=== PATIENT | female | born 1950 | race African-American/Black ===

== ENCOUNTER 2018-11-05 08:48 | Inpatient (IN) | payer MEDICARE ==
--- NOTE | 2018-10-23 14:51 | HP ---
HISTORY AND PHYSICAL: DATE OF ADMISSION/SURGERY: 11/05/18 DATE OF OFFICE VISIT: 10/23/18 SURGEON: Dorinda Harper MD* (dictated by JAVIER Silva). PROCEDURE: Left total knee arthroplasty. CHIEF COMPLAINT: Left knee pain. HISTORY OF PRESENT ILLNESS: Ms. Fox is a 68-year-old female with continued complaints of left knee pain. She has failed conservative treatment and elected to proceed with a left total knee arthroplasty. PAST MEDICAL HISTORY: Hypertension, asthma, GERD, hypothyroidism, anxiety, depression, history of superficial phlebitis, sleep apnea, and fibromyalgia. PAST SURGICAL HISTORY: Hernia repair, x2, cholecystectomy, cataract removal, laminectomy, hammertoe repair, and a right total knee arthroplasty. CURRENT MEDICATIONS: 1. Xanax 0.5 mg 3 times a day as needed. 2. Tylenol as needed. 3. Nasonex as needed. 4. Valacyclovir 500 mg a day. 5. Ambien 10 mg q.h.s. 6. Hydrochlorothiazide 25 mg a day. 7. Meloxicam 7.5 mg twice a day. 8. Zantac. 9. Vitamin D. 10. Multivitamin. 11. Flexeril. 12. Cytomel 5 mcg daily. 13. Albuterol sulfate. 14. Aspirin 81 mg a day. ALLERGIES: PENICILLIN, LATEX, and TAPE. FAMILY HISTORY: Diabetes, hypertension, stroke, cancer, and RA. SOCIAL HISTORY: She is a 68-year-old female. She lives alone. She does not smoke or use drugs. Uses occasional alcohol. REVIEW OF SYSTEMS: A complete 14-point review of systems was reviewed with the patient. She reports hypothyroidism and some occasional palpitations and asthma. She denies history of DVT, PE, hepatitis, HIV, or anesthesia problems. PHYSICAL EXAMINATION GENERAL: She is well developed, well nourished, in no acute distress. VITAL SIGNS: She stands 5 feet 2 inches tall, weighs 251 pounds. Her blood pressure is 128/76, her heart rate is 60. HEENT: Normocephalic, atraumatic. NECK: Supple. No palpable lymph nodes. PULMONARY: The lungs are clear to auscultation bilaterally. CARDIO: Regular rate and rhythm. Strong S1, S2. ABDOMEN: Soft, nontender, nondistended. NEUROLOGICAL: She is alert and oriented x3. MUSCULOSKELETAL: Left lower extremity: Skin is intact. There are no open wounds or abrasions. There is some tenderness over the medial and lateral joint line and a moderate left knee effusion. Range of motion is 5 to 110 degrees of flexion. She has 2+ dorsalis pedis pulse. Intact sensation. Her lower extremity muscle group strengths are intact at 5/5. ASSESSMENT AND PLAN: Ms. Fox is a 68-year-old female with end-stage osteoarthritis of the left knee. She has failed conservative treatment and elected to proceed with a left total knee arthroplasty. Her surgery is scheduled for 11/05/[address] Harper discussed the risks and benefits of the surgery at today's visit and all of her questions were answered. She will follow up with Dr. Harper 2 weeks after the surgery. JAVIER SILVA [id number]/[facility] #: [id number] SHANNON
[~2018-11-05 08:48] MED LIST: Buffered Lidocaine 1% SYRIN* 1 ML/SYRINGE INTRADERM ONE; Lactated Ringers 1000 ML Bag* 1,000 ML IV SCH; Tranexamic Acid 1,000 MG in NS 0.9% 50 ML* (outpatient use) IV SCH
--- OUTSIDE RECORDS SUMMARY | 2018-11-05 08:52 | XMS REPORT | Continuity of Care Document ---
:1950 External Reference #:[id number] Author Name Mayr Brock Care Team Providers Name Role Phone Pedro Recio MD Primary Care Physician Unavailable Payers Date Identification Numbers Payment Provider Subscriber Policy Number: [id number] Medicare Sasha Fox PayID: [id number] [address] [place] [address] Policy Number: [id number] [facility] Sasha Fox PayID: [id number] [address] [place] [address] Effective: 2014 Policy Number: [id number] Gomez/[employer] Medicaid Sasha Fox Expires: 2018 PayID: [id number] [address] [address] [place] [address] Advance Directives Description No Information Available Problems Date Description Provider Status Onset: 01/05/2015 Obstructive sleep apnea of adult Anita Tam DNP RN, Active [employer] Onset: 03/15/2015 Spinal stenosis of lumbar region Chace Siegel M.D. Active Onset: 08/23/2018 Localized, primary osteoarthritis Dorinda Harper M.D. Active Family History Date Family Member(s) Observation Comments General MGM HTN General Diabetes General Heart Disease General Stroke General Cancer General Rheumatoid Arthritis Father non contributory Mother due to 5 years ago () Mother Hypertension Mother Throat Cancer Mother COPD Siblings 11 Siblings 2 brothers ; 1 overdosed;1 in accident Siblings sister of breast cancer ; others alive and well Social History Type Date Description Comments Sex Unknown Marital Status Single Marital Status Lives With Alone Occupation Disabled Previous employment as a [employer]ER[employer] Cigarette Use Quit 40 Years Ago ETOH Use Occasionally consumes alcohol Tobacco Use Start: Unknown Patient is a former End: Unknown smoker Recreational Drug Use Denies Drug Use Tobacco Use Start: Unknown Light tobacco smoker (10 or fewer cigarettes/day) Smoking Status Reviewed: 10/23/18 Light tobacco smoker (10 or fewer cigarettes/day) Exercise Type/Frequency Exercises sporadically Allergies, Adverse Reactions, Alerts Date Description Reaction Status Severity Comments 01/05/2015 Penicillin Active 01/05/2015 Latex Active 08/23/2018 Tape Active Medications Medication Date Status Form Strength Qnty SIG Indications Ordering Provider Xanax 01/04 Active Tablets 0.5mg by mouth three times a day as needed Tylenol Extra 01/04 Active Tablets 500mg as needed Unknown Nasonex 01/04 Active Suspension 50mcg/Act 2 sprays to each nostril twice daily Valacyclovir HCL 01/04 Active Tablets 500mg 1 by mouth every day Ambien 01/04 Active Tablets 10mg 1 by mouth every night at bedtime as needed sleep insomnia Hydrochlorothiazid Active Tablets 25mg 1 by Unknown e /0000 mouth every day Meloxicam Active Tablets 7.5mg take one Unknown /0000 tab twice daily as needed for pain, avoid other nsaids Zantac 150 Maximum Active Tablets 150mg 1 by Unknown Strength /0000 mouth twice a day Vitamin D Active Unknown /0000 Multivital Active Unknown /0000 Cyclobenzaprine Active Unknown HCL /0000 Cytomel Active Tablets 5mcg 1 by Unknown /0000 mouth every day Albuterol Sulfate Active Unknown /0000 Pelgen 03/15 Hx as directed - 08/22 Restoril 01/04 Hx Capsules 15mg as needed for sleep - 01/04 Dulera 01/04 Hx Aerosol 200-5mcg/ 2 puff Act twice a - day 08/22 Centrum Silver 01/04 Hx Tablets 1 by mouth - every day 08/[address] 01/[address] 500mg by mouth twice a - day with 10/22 Proventil HFA 01/04 Hx Aerosol 108(90Bas 2 puffs e) by mouth - mcg/Act every 4 08/22 hours needed Dariela Allergy 01/04 Hx Tablets 180mg 1 by mouth - every day 08/22 Zolpidem Tartrate 01/04 Hx Tablets 10mg 1 tab by mouth - every 01/04 night at bedtime as needed Naproxen 01/04 Hx Tablets 500mg 1 tablet with food - by mouth 03/15 twice a day Advair Diskus Hx Unknown /0000 - 10/22 Immunizations Description No Information Available Vital Signs Date Vital Result Comment 10/23/2018 9:47am Height 62 inches 5'2" Weight 251.00 lb Heart Rate 60 /min BP Systolic 128 mmHg BP Diastolic 76 mmHg Pain Level 5 BMI (Body Mass Index) 45.9 kg/m2 08/23/2018 2:56pm Height 62 inches 5'2" Weight 250.00 lb Heart Rate 68 /min BP Systolic 140 mmHg BP Diastolic 90 mmHg BMI (Body Mass Index) 45.7 kg/m2 03/16/2015 9:45am Height 62.75 inches 5'2.75" Heart Rate 68 /min BP Systolic 148 mmHg BP Diastolic 76 mmHg Respiratory Rate 12 /min O2 % BldC Oximetry 98 % 03/15/2015 1:32pm Height 62.75 inches 5'2.75" Weight 226.00 lb Heart Rate 80 /min BP Systolic Sitting 142 mmHg BP Diastolic Sitting 76 mmHg Pain Level 5 lower back, L leg BMI (Body Mass Index) 40.3 kg/m2 01/05/2015 1:26pm Height 62 inches 5'2" Weight 232.00 lb Heart Rate 66 /min BP Systolic Sitting 136 mmHg BP Diastolic Sitting 78 mmHg Respiratory Rate 20 /min Body Temperature 97.4 F O2 % BldC Oximetry 98 % BMI (Body Mass Index) 42.4 kg/m2 Neck Circumference in inches 14.5 Results Description No Information Available Procedures Date Code Description Status 02/21/2015 53163 Polysomnography Sleep Staging 4+ Parameters Completed 11/25/2012 15975 Polysomnography Sleep Staging 4+ Parameters Completed 01/08/2009 47144 ECHO Stress Test Incl Perf Contiuous ekg Monitoring W/Phys Completed Superv 01/08/2009 88072 ECHO Stress Test Incl Perf Contiuous ekg Monitoring W/Phys Completed Superv Encounters Type Date Location Provider Dx Diagnosis Office Visit 08/23/2018 Orthopedic Dorinda Harper, M25.562 Pain in left knee 2:30p [facility] M25.462 Effusion, left knee M17.12 Unilateral primary osteoarthritis, left knee Office Visit 03/16/2015 Pulmonology And Anita 327.23 Obstructive Sleep 9:30a [facility] Tam RN, Apnea Adult [facility]- Pediatric Office Visit 03/15/2015 Neurosurgery Chace Siegel, 724.03 Spinal Stenosis , 1:30p [facility] Lumbar Region W/ Neurogenic Claudication Office Visit 01/05/2015 Pul[facility] 327.23 Obstructive Sleep 1:00p [facility] Tam RN, Apnea [facility]- Pediatric Office Visit 10/04/2012 [facility] 327.23 Obstructive Sleep 1:14p [facility]zon Apnea Adult & Pediatric Office Visit 01/08/2009 [facility] Qutayb S. 786.50 Pain Chest Unspec 1:30p [facility] Garrett 401.1 Hypertension Benign Plan of Treatment Future Appointment(s):11/05/2018 12:30 pm - ROMAN Bernard at [facility]11/05/2018 12:30 pm - JAVIER Dorado at [facility]11/05/2018 12:30 pm - Dorinda Harper M.D. at [facility]10/23/2018 - Dorinda Harper M.D.M25.562 Pain in left kneeFollow up:Follow up: 2 weeks after [id number] Effusion, left kneeM17.12 Unilateral primary osteoarthritis, left knee
[2018-11-05] MEDS ORDERED: ceFAZolin 2 GM in NS PREMIX(*) 0 GM/0 ML BAG IVPB ONE (09:08)
[2018-11-05] MEDS ORDERED: fentaNYL* 50 MCG/ML 2 ML VIAL (100 MCG VIAL) ONE ×3 (10:08→12:25)
[2018-11-05] MEDS ORDERED: Midazolam* 1 MG/ML 5 ML VIAL (5 MG) ONE (10:09)
[2018-11-05] MEDS ORDERED: Clindamycin 900 MG IVPREMIX(* 900 MG/50 ML SDV IV ONE (10:31)
[2018-11-05] MEDS ORDERED: ROPIVACAINE 5 MG/ML 30 ML BTL (0.5%) ONE (11:07)
[2018-11-05] MEDS ORDERED: Propofol* 10 MG/ML 20 ML BTL ONE ×3 (11:45→12:33)
[2018-11-05] MEDS ORDERED: Bupivacaine 0.5% W/EPI SDV* 30 ML VIAL ONE (11:47)
[2018-11-05] MEDS ORDERED: Dexamethasone IV* 4 MG/ML 1 ML (4 MG) ONE (12:33)
[2018-11-05] MEDS ORDERED: Ondansetron INJ* 2 MG/ML VIAL ONE (12:33)
[2018-11-05] MEDS ORDERED: Naloxone* 0.4 MG/ML 1 ML VIAL IV PRN (14:12)
[2018-11-05] MEDS ORDERED: Bisacodyl SUPP* 10 MG SUPP PR PRN (14:27)
[2018-11-05] MEDS ORDERED: Ondansetron TAB* 4 MG PO PRN (14:27)
[2018-11-05] MEDS ORDERED: Morphine 4 MG/ML VIAL (1 ml) 4 MG/ML VIAL IV PRN (14:27)
[2018-11-05] MEDS ORDERED: oxyCODONE/Acetamin 5/325 MG* TAB PO PRN (14:27)
[2018-11-05] MEDS ORDERED: traMADol TAB* 50 MG PO PRN (14:27)
[2018-11-05] MEDS ORDERED: diPHENhydraMINE IV* 50 MG/ML 1 ml VIAL (BENADRYL) IV PRN (14:27)
[2018-11-05] MEDS ORDERED: Ondansetron INJ* 2 MG/ML VIAL IV PRN (14:27)
[2018-11-05] MEDS ORDERED: Magnesium Hydroxide LIQ* 30 ML UDC PO PRN (14:27)
[2018-11-05] MEDS ORDERED: Polyethylene Glycol 3350* 17 GM PACKET PO PRN (14:27)
[2018-11-05] MEDS ORDERED: Albuterol HFA INHALER* 8 gm MDI INH PRN (14:32)
[2018-11-05] MEDS ORDERED: Zolpidem TAB* 10 MG PO PRN (14:32)
[2018-11-05] MEDS ORDERED: ALPRAZolam TAB* 0.5 MG PO PRN (14:32)
[2018-11-05] MEDS ORDERED: hydrALAZINE IV* 20 MG/ML VIAL ONE (14:39)
[2018-11-05] MEDS ORDERED: HYDROmorphone INJ1* 1 MG/ML SYRINGE ONE ×2 (14:42→15:05)
[2018-11-05] MEDS ORDERED: Lactated Ringers 1000 ML Bag* 1,000 ML IV SCH (15:00)
--- NOTE | 2018-11-05 15:32 | PN ---
Progress Note - Progress Note Date of Service: 11/05/18 Note: resting comfortably with moderate left knee pain. able to dorsi flex/plantar flex, 2+ DP pulse, intact sensation; dressing c/d/i
[2018-11-05] MEDS ORDERED: diPHENhydraMINE PO* 50 MG PO PRN (15:51)
[2018-11-05] MEDS ORDERED: oxyCODONE/Acetamin 5/325 MG* TAB ONE (16:13)
--- NOTE | 2018-11-05 16:47 | CONS ---
CONSULTATION NOTE: DATE OF CONSULT: 11/05/18 REQUESTING PROVIDER: Dr. Dorinda Harper. ATTENDING PROVIDER: Dr. Lr * (DICTATED BY JAVIER ERIC) REASON FOR CONSULT: Co-management of chronic medical conditions. HISTORY OF PRESENT ILLNESS: Sasha Fox is a 68-year-old black female with past medical history significant for hypertension, asthma, hypothyroidism and obstructive sleep apnea, who is status post left total knee arthroplasty day [address] Harper. The patient failed conservative outpatient medical therapy for treatment of her osteoarthritis of her left knee and elected for surgery today. At the time of evaluation, the patient is located in the PACU. She overall feels comfortable other than left knee pain. She denies chest pain, dyspnea, visual changes, headaches, palpitations, abdominal pain, nausea, vomiting. She and her family at bedside have no questions. PAST MEDICAL HISTORY: 1. Hypertension. 2. Asthma. 3. GERD. 4. Hypothyroidism. 5. Anxiety. 6. Depression. 7. Obstructive sleep apnea. 8. Fibromyalgia. 9. HSV. 10. History of superficial phlebitis. The patient denies history of IN or stroke. PAST SURGICAL HISTORY: Hernia repair, , cholecystectomy, cataract removal, laminectomy, hammertoe repair, and right TKA. HOME MEDICATIONS: 1. Flexeril 5 mg p.o. b.i.d. p.r.n. 2. Zantac 150 p.o. q.a.m. 3. Synthroid 5 mcg p.o. q.a.m. 4. Tylenol 500 mg p.o. daily p.r.n. pain. 5. Xanax 0.5 mg p.o. b.i.d. p.r.n. anxiety. 6. Vitamin D3 5000 units p.o. q.a.m. 7. Aspirin 81 mg p.o. q.p.m. 8. Albuterol inhaler 2 puffs inhaled q.4 hours p.r.n. wheezing. 9. Dariela 180 mg p.o. q.a.m. 10. Meloxicam 7.5 mg p.o. b.i.d. p.r.n. 11. Hydrochlorothiazide 25 mg p.o. q.a.m. 12. Multivitamin 1 tab p.o. q.a.m. 13. Nasonex 1 spray intranasally daily. 14. Valtrex 500 mg p.o. q.a.m. 15. Ambien 10 mg p.o. at bedtime p.r.n. insomnia. ALLERGIES: PENICILLIN, TRAMADOL, LATEX. FAMILY HISTORY: The patient endorses family history of diabetes, hypertension, and stroke. REVIEW OF SYSTEMS: An 11-point review of systems was completed and all pertinent positives and negatives are in the HPI. All other systems are negative. PHYSICAL EXAM: General: Obese, black female, resting in PACU stretcher with daughter and granddaughter at bedside, appearing in no acute distress. Head: Normocephalic, atraumatic. Eyes: EOMI. PERRL. Sclerae anicteric. ENT: Mucous membranes are moist. Neck is supple. Cardio: Regular rate and rhythm without murmurs, rubs, or gallops. Respiratory: Lungs are clear to auscultation. Chest expansion is symmetrical. Abdomen is soft, nontender, and nondistended. Extremities: No clubbing or edema. The left knee is in Alfred wrap. Neuro: The patient is lethargic at times, though very easily rousable by voice. The patient is oriented x3. DIAGNOSTIC STUDIES/LAB DATA: None from this hospitalization. ASSESSMENT AND PLAN: Sasha Fox is a 68-year-old black female with past medical history significant for hypertension, asthma, hypothyroidism and obstructive sleep apnea, who presents for elective left total knee arthroplasty today with Dr. Harper. Hospital Medicine was consulted for co-management of chronic conditions. 1. Hypertension. Continue home hydrochlorothiazide. Continue to monitor blood pressure. The patient has been hypertensive in the PACU to 161/87. May consider ordering p.r.n. hydralazine. 2. Obstructive sleep apnea. The patient does not use CPAP at home. She uses an oral device, which she did bring to the hospital. Continuous pulse ox will be ordered at night. 3. status post left total knee arthroplasty. Management per orthopedic surgery. Recommend holding ambien in the setting of patient receiving opiates for pain control. Ordered benadryl prn insomnia as replacement. 4. DVT prophylaxis: Per Orthopedic Surgery. 5. Disposition: Per Orthopedic Surgery. Thank you for allowing us to participate in the care of this patient. We will follow during this admission. JAVIER ERIC ADDENDUM CONSULTATION DATE OF CONSULT: 11/05/18 PRIMARY CARE PROVIDER: Dr. Recio. ADDENDUM: The case was reviewed and discussed with Regina Ryan, physician assistant toddler teacher. Mrs. Fox is a 68-year-old lady with a past medical history of neurogenic claudication, hypothyroidism, spinal stenosis, DJD, hypertension, depression, asthma who presented for an elective left total knee arthroplasty with Dr. Harper. As per my discussion with Janneth Hennessy, physician assistant toddler teacher, her surgery went well and the hospitalist service is being consulted to assist with management of her comorbidities. Her blood pressure is controlled and we will continue her antihypertensives including hydrochlorothiazide. For her sleep apnea, the patient is not on CPAP. She just wears an oral device and we will monitor her oxygen level overnight. RENETTA Lr MD [id number]/[facility] #: [id number] Perez [id number]/[facility] #: [id number] SHANNON
[2018-11-05] MEDS: Cyclobenzaprine TAB* 10 MG PO PRN (17:27)
[2018-11-05] MEDS: Acetaminophen TAB* 325 MG PO SCH (18:44)
[2018-11-05] MEDS ORDERED: Hydrochlorothiazide TAB* 25 MG PO ONE (19:08)
--- NOTE | 2018-11-05 19:36 | OP ---
Operative Report - Blank - Operative Report Date of Operation: 11/05/18 Note: JAZMINE URENA 1950 Date of Surgery: 11/05/18 Dorinda Harper MD Fusing Line Inspector: Janneth Hennessy did help throughout the procedure with preparation of the knee, wound retraction, manipulation of the knee, and wound closure. Anesthesiologist: Dr. Vicente Anesthesia Type: General Preoperative Diagnosis: Left severe degenerative osteoarthritis of the knee Postoperative Diagnosis: As above Procedure Performed: Left Total Knee Arthroplasty Tourniquet time: 63 minutes Complications: None Specimen: Bone and cartilage from the left knee joint sent to pathology. Hardware Used: Cemented Montalvo and Nephew total knee hardware was used - For the femur a size 6 narrow oxinium legion posterior stabilized femoral component, for the tibia a size 5 left gerardo II tibial baseplate, for the insert a size 11 posterior stabilized articular polyethylene insert, and for the patella a size 32 3-peg all poly patella. Brief History/Indication: JAZMINE URENA was known in clinic and had a history of severe side knee pain and swelling. She failed conservative treatment with anti-inflammatories, pain pills, intra-articular injections and physical therapy. She elected to undergo left total knee arthroplasty due to continued pain and decreased quality of life. Radiographs showed severe end stage osteoarthritis of the knee with bone on bone contact. Informed consent was obtained from the patient. She understood the risks of surgery included but were not limited to: bleeding, infection, damage to nearby structures, intraoperative fracture, nerve palsy, failure of the hardware, early loosening, knee stiffness or loss of motion, anesthesia complications, stroke, heart attack , blood clot and . She wished to proceed. Intra-Operative Findings: Intraoperatively the patient was noted to have severe loss of cartilage in all 3 compartments of the knee. Description of the Procedure: JAZMINE URENA was identified in the preanesthesia unit. Her left knee was marked as the correct operative side. Informed consent was signed and placed in the chart. The patient was taken to the operating room and placed under anesthesia without complication. A holloway catheter was placed. A tourniquet was placed on the left thigh. The left lower extremity was prepped and draped in the usual sterile fashion. Preoperative time-out was made to correctly identify the patient, side and site. Appropriate intraoperative antibiotics were given within one hour of incision. Tourniquet was inflated. A midline incision was made and carried sharply down to the extensor mechanism. A new 10 blade was used to make a standard medial parapatellar arthrotomy. The patella was subluxed laterally. Electrocautery was used to dissect soft tissue off the superomedial tibia to the midsagittal plane. The knee was flexed up. The anterior horn of the lateral meniscus and the ACL were sharply incised. A drill was used to enter the distal femur. The intramedullary distal femoral cutting guide was pinned on the distal femur. The oscillating saw was used to make the distal femoral cut. The external rotation guide was pinned on the distal femur and the distal femur was sized to a size 6. The size 6 multi-cutting jig was pinned on the distal femur. The oscillating saw was used to make the appropriate 4 chamfer cuts. Next the PCL was completely released. The extramedullary tibial cutting guide was pinned on the proximal tibia and the oscillating saw was used to make the proximal tibial cut perpendicular to the mechanical axis of the tibia. The bone was carefully removed. The knee was brought out into full extension. The spacer block was placed and had excellent fit with the knee in full extension. The medial and lateral ligaments were well balanced. The flexion and extension gaps were well balanced. The knee was flexed up. Lamina manager cash was placed both medially and laterally. Any remaining meniscus was removed with electrocautery. Curved osteotome was used to remove any posterior osteophytes. The tibial tray and drop humberto were placed and confirmed a satisfactory tibial cut. The size 6 left narrow femoral trial was impacted onto the distal femur. This trial had excellent fit and stability. The box for the posterior stabilized implant was prepared using a box cut osteotome and a reamer. Next a tibial tray trial and 9 mm insert trial was placed. The knee was taken through a range of motion and had full extension to 130 degrees of flexion. Patellofemoral tracking was satisfactory. The patella was inverted and sized to a size 32. Three peg holes were drilled through the size 32 drill guide. The trial patella was placed and the knee was taken through a range of motion. There was satisfactory patellofemoral tracking. All trials were removed. The tibia was subluxed anteriorly and sized to a size 5. The proximal tibial was prepared with a size 5 keel punch. All bony cut surfaces were irrigated with sterile saline and dried. Final implants were cemented into place starting with the tibia, followed by the femur, and last the patella. A 9 mm insert trial was placed and the knee was brought into full extension. Tourniquet was turned down and the knee was copiously irrigated with sterile saline. Electrocautery was used to obtain meticulous hemostasis. Once the cement had fully cured, the insert trial was removed. Any excess cement was removed from around the hardware and capsule. Final insert chosen was a 11 mm posterior stabilized Gerardo II articular insert size 5-6. Stability of the insert was checked and noted to be stable. The extensor mechanism was closed using number 1 vicryls. The rest of the incision was closed in a layered fashion using 0 and 2-0 vicryls. The skin was closed using 3-0 nylon suture. Sterile xeroform, 4x4s and webril were used to cover the incision. Alfred wrap and cold pack were used to cover the dressings. The patients anesthesia was reversed without difficulty. She was taken to the PACU in stable condition. Intended weight-bearing will be as tolerated.
[2018-11-05] MEDS: Docusate CAP* 100 MG PO SCH (19:39)
[2018-11-05] MEDS: oxyCODONE TAB* 5 MG TAB PO PRN ×2 (19:39→23:28)
[2018-11-05] MEDS: Clindamycin 600 MG IVPREMIX(* 600 MG/50 ML SDV IV SCH (19:40)
[2018-11-05] MEDS: Magnesium Hydroxide LIQ* 30 ML UDC PO SCH (19:45)
--- NOTE | 2018-11-05 20:03 | CONS ---
CC: Dr. Recio CONSULTATION REPORT: DATE OF CONSULT: PRIMARY CARE PROVIDER: Dr. Recio. ADDENDUM: The case was reviewed and discussed with Regina Ryan, physician assistant professor of psychology. Mrs. Fox is a 68-year-old lady with a past medical history of neurogenic claudication, hypothyroidism, spinal stenosis, DJD, hypertension, depression, asthma who presented for an elective left total knee arthroplasty with Dr. Harper. As per my discussion with Janneth Hennessy, physician assistant professor of psychology, her surgery went well and the hospitalist service is being consulted to assist with management of her comorbidities. Her blood pressure is controlled and we will continue her antihypertensives including hydrochlorothiazide. For her sleep apnea, the patient is not on CPAP. She just wears an oral device and we will monitor her oxygen level overnight. [id number]/[facility] #: [id number] MTDD
[2018-11-06] MEDS: oxyCODONE TAB* 5 MG TAB PO PRN ×5 (03:30→21:12)
[2018-11-06] MEDS: Acetaminophen TAB* 325 MG PO SCH ×3 (03:30→18:27)
[2018-11-06] MEDS: Clindamycin 600 MG IVPREMIX(* 600 MG/50 ML SDV IV SCH ×2 (03:31→11:50)
[2018-11-06 05:30] LABS: Hematocrit 33 % (33-41); Hemoglobin 10.9 g/dL (12.0-16.0); Mean Platelet Volume 7.8 fL (7.4-10.4); Platelet Count 231 10^3/uL (150-450)
[2018-11-06 05:50] LABS: BUN/Creatinine Ratio 12.5 (8-20); Calcium 8.9 mg/dL (8.6-10.3); EGFR African American 86.6 (>60); EGFR Non-African American 71.5 (>60); Potassium 3.7 mmol/L (3.5-5.0)
[2018-11-06] MEDS: Cyclobenzaprine TAB* 10 MG PO PRN ×2 (05:59→21:12)
[2018-11-06] MEDS ORDERED: Levothyroxine TAB* 25 MCG TAB PO SCH (06:00)
[2018-11-06] MEDS: Liothyronine TAB* 5 MCG PO SCH (08:32)
[2018-11-06] MEDS: Magnesium Hydroxide LIQ* 30 ML UDC PO SCH ×2 (08:32→21:12)
[2018-11-06] MEDS: Docusate CAP* 100 MG PO SCH ×2 (08:32→21:12)
[2018-11-06] MEDS: Hydrochlorothiazide TAB* 25 MG PO SCH (08:32)
[2018-11-06] MEDS: ValACYclovir (*) 500 MG TAB PO SCH (08:33)
[2018-11-06] MEDS ORDERED: Apixaban* 2.5 MG TAB PO SCH (09:00)
--- NOTE | 2018-11-06 09:45 | PN ---
Progress Note - Progress Note Date of Service: 11/06/18 SOAP: Subjective: [] Pt seen at bedside today. She is feeling well, pain is rated between 4-6/10. Denies CP, SOB, dizziness, nausea. She discussed costs for DVT prophylaxis with her insurance company and has found eliquis/xarelto to be very expensive. She has taken coumadin in the past and never reached a therapeutic INR. 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 Objective: []General: Appears well, NAD LLE: Left knee dressing CDI, thigh is soft, DF/PF intact, DP2+, sensation intact to light touch distally, DP2+ Calves supple and nontender without erythema, edema or palpable cords Assessment: []POD [address] Harper 11/05/18 Plan: []WBAT PT/OT Already received 1 dose of eliquis this morning though due to expense and patient preference, will transition to lovenox tonight at 20:30 which would have been next scheduled dose for eliquis. Anticipate DC home tomorrow Vital Signs Temp 99.3 F 11/06/18 04:54 Pulse 89 11/06/18 04:54 Resp 18 11/06/18 07:49 BP 131/62 11/06/18 04:54 Pulse Ox 98 11/06/18 04:54 Intake & Output 11/05/18 11/06/18 11/06/18 18:59 06:59 18:59 Intake Total 3200 2011 Output Total 300 2350 300 Balance 2900 -339 -300 Weight 249 lb Intake: IV Fluids 3200 956 LR 3200 956 IVPB 55 ABX - CLINDAMYCIN 55 Oral 1000 Output: Urine 300 Torres 300 2350 Laboratory Last Values Hgb 10.9 g/dL (12.0-16.0) L 11/06/18 05:01 Hct 33 % (33-41) 11/06/18 05:01 Plt Count 231 10^3/uL (150-450) 11/06/18 05:01 MPV 7.8 fL (7.4-10.4) 11/06/18 05:01 Sodium 136 mmol/L (135-145) 11/06/18 05:01 Potassium 3.7 mmol/L (3.5-5.0) 11/06/18 05:01 Chloride 99 mmol/L (101-111) L 11/06/18 05:01 Carbon Dioxide 30 mmol/L (22-32) 11/06/18 05:01 Anion Gap 7 mmol/L (2-11) 11/06/18 05:01 BUN 10 mg/dL (6-24) 11/06/18 05:01 Creatinine 0.80 mg/dL (0.51-0.95) 11/06/18 05:01 Est GFR ( Amer) 86.6 (>60) 11/06/18 05:01 Est GFR (Non-Af Amer) 71.5 (>60) 11/06/18 05:01 BUN/Creatinine Ratio 12.5 (8-20) 11/06/18 05:01 Glucose 129 mg/dL (70-100) H 11/06/18 05:01 Calcium 8.9 mg/dL (8.6-10.3) 11/06/18 05:01
[2018-11-06] MEDS ORDERED: Enoxaparin(*) 40 MG/0.4 ML SYR SUBCUT SCH (20:30)
[2018-11-07] MEDS: oxyCODONE TAB* 5 MG TAB PO PRN ×3 (01:44→09:43)
[2018-11-07] MEDS: Acetaminophen TAB* 325 MG PO SCH ×2 (03:20→10:44)
[2018-11-07 05:39] LABS: Hematocrit 31 % (33-41); Hemoglobin 10.2 g/dL (12.0-16.0); Mean Platelet Volume 7.1 fL (7.4-10.4); Platelet Count 205 10^3/uL (150-450)
[2018-11-07] MEDS: Liothyronine TAB* 5 MCG PO SCH (08:15)
[2018-11-07] MEDS: Magnesium Hydroxide LIQ* 30 ML UDC PO SCH (08:15)
[2018-11-07] MEDS: Docusate CAP* 100 MG PO SCH (08:15)
[2018-11-07] MEDS: ValACYclovir (*) 500 MG TAB PO SCH (08:15)
[2018-11-07] MEDS: Hydrochlorothiazide TAB* 25 MG PO SCH (08:15)
[2018-11-07 11:37] VITALS: BP 130/54
--- NOTE | 2018-11-07 11:45 | PN ---
Progress Note - Progress Note Date of Service: 11/07/18 SOAP: Subjective: []Pt seen at bedside. She feels well and desires DC to home today. Denies CP, SOB, dizziness or nausea. Objective: [] General: NAD, laying comfortably in bed LLE: Left knee dressing changed, incision is CDI, thigh is soft, DF/PF intact, DP2+, sensation intact to light touch distally, DP2+ Calves supple and nontender without erythema, edema or palpable cords Assessment: []POD 2 s/p LTK replacement Dr Harper 11/05/18 Plan: []WBAT PT/OT Lovenox for DVT prophylaxis Anticipate DC home today Vital Signs Temp 98.5 F 11/07/18 11:07 Pulse 87 11/07/18 11:07 Resp 17 11/07/18 11:07 BP 130/54 11/07/18 11:07 Pulse Ox 96 11/07/18 11:07 Intake & Output 11/06/18 11/07/18 11/07/18 18:59 06:59 18:59 Intake Total 1496 1150 320 Output Total 950 850 Balance 546 300 320 Intake: IV Fluids 1086 LR 1086 IVPB 110 ABX - CLINDAMYCIN 110 Oral 300 1150 320 Output: Urine 950 850 Other: Estimated Void Large # Bowel Movements 0 # Voids 1 Laboratory Last Values Hgb 10.2 g/dL (12.0-16.0) L 11/07/18 05:22 Hct 31 % (33-41) L 11/07/18 05:22 Plt Count 205 10^3/uL (150-450) 11/07/18 05:22 MPV 7.1 fL (7.4-10.4) L 11/07/18 05:22 Sodium 136 mmol/L (135-145) 11/06/18 05:01 Potassium 3.7 mmol/L (3.5-5.0) 11/06/18 05:01 Chloride 99 mmol/L (101-111) L 11/06/18 05:01 Carbon Dioxide 30 mmol/L (22-32) 11/06/18 05:01 Anion Gap 7 mmol/L (2-11) 11/06/18 05:01 BUN 10 mg/dL (6-24) 11/06/18 05:01 Creatinine 0.80 mg/dL (0.51-0.95) 11/06/18 05:01 Est GFR ( Amer) 86.6 (>60) 11/06/18 05:01 Est GFR (Non-Af Amer) 71.5 (>60) 11/06/18 05:01 BUN/Creatinine Ratio 12.5 (8-20) 11/06/18 05:01 Glucose 129 mg/dL (70-100) H 11/06/18 05:01 Calcium 8.9 mg/dL (8.6-10.3) 11/06/18 05:01
--- NOTE | 2018-11-07 12:00 | DS ---
Orthopedic Discharge Summary - Discharge Summary Date of Admission:11/05/18 Date of Discharge: 11/07/18 Date of Surgery: 11/05/18 Attending Orthopedic Provider: Dr Harper Pre-operative Diagnosis: left knee osteoarthritis Operative Procedure: left total knee replacement Condition of Patient: stable History: JAZMINE URENA is a 68 year old F with years of increasingly severe left knee pain. Patient has failed conservative management and has elected to undergo a left total knee replacement Hospital Course: JAZMINE was admitted to [facility] on 11/05/18. Patient underwent a left total knee replacement without complication followed by a brief recovery in PACU and transfer to the Short Stay Surgical Unit in stable condition. Our hospitalist service, physical therapy and occupational therapy also participated in this patients care. Post-op day 1: patient was alert and in no acute distress. Dressing was clean, dry and intact. Operative extremity dorsiflexion and plantarflexion intact, sensation intact to light touch distally, DP2+. Post-op day two: dressing was changed, incision was clean , dry and intact. Patient was deemed to be medically and orthopedically stable for discharge home. Physical therapy goals were met. Home Medications Medication Instructions Recorded Confirmed Type ALPRAZolam TAB* Xanax TAB* 0.5 mg PO BID PRN 10/04/12 10/23/18 History Fexofenadine (NF) [Dariela 180 180 mg PO QAM 10/04/12 10/23/18 History (NF)] Zolpidem TAB* [Ambien*] HOLD while taking narcotics 10/04/12 10/23/18 History Mometasone NASAL (NF) [Nasonex 1 spray INTRANASAL DAILY 10/07/12 10/23/18 History (NF)] Hydrochlorothiazide TAB* 25 mg PO QAM 07/03/16 10/23/18 History [Hydrodiuril TAB*] Albuterol HFA INHALER* [Ventolin 2 puff INH Q4H PRN 01/03/18 10/23/18 History HFA Inhaler*] ValACYclovir (*) [Valtrex 500 mg 500 mg PO QAM 01/03/18 10/23/18 History (*)] Acetaminophen [Tylenol Extra 500 mg PO DAILY PRN 01/04/18 10/23/18 History Strength] Aspirin [Adult Aspirin] 81 mg PO QPM 01/04/18 10/23/18 History Cholecalciferol (Vitamin D3) 5,000 unit PO QAM 01/04/18 10/23/18 History [Vitamin D3] Cyclobenzaprine (NF) 5 mg PO BID PRN 01/04/18 11/05/18 History [Cyclobenzaprine 5 MG (NF)] Meloxicam 7.5 mg PO BID PRN 01/04/18 10/23/18 History Multivitamin [Multivitamins] 1 cap PO QAM 01/04/18 10/23/18 History raNITIdine HCl [Zantac 75] 150 mg PO QAM 10/23/18 11/05/18 History Liothyronine TAB* [Cytomel TAB*] 5 mcg PO DAILY 11/06/18 11/06/18 History Acetaminophen TAB* [Tylenol TAB*] 975 mg PO Q8H tab 11/07/18 Rx Docusate CAP* [Colace Cap*] 100 mg PO BID PRN #90 cap 11/07/18 Rx Enoxaparin(*) [Lovenox(*)] 40 mg SUBCUT Q12HR #60 syringe 11/07/18 Rx oxyCODONE TAB* [Roxycodone TAB 5 10 mg PO Q4H PRN #70 tab MDD 10 11/07/18 Rx mg*] Discharge Instructions following Orthopedic Surgery: Activity: * Weight Bearing as tolerated * Continue physical therapy and occupational therapy exercises as shown * Start PT right away as instructed Wound care: * OK to shower on post-op day 3, no bathing, swimming, or submerging wound. * Use gentle soap, pat dry. Cover with gauze, CHIP wrap or tape. Call Orthopedic office for: * Increased drainage * Redness * Increased pain * Fever Go to ER with shortness of breath or chest pain. Diet: * Regular diet * Increase fluids and fiber to prevent constipation. * Continue to use stool softeners, call office if no bowel motion within 48 hours. Medications See Home Medication List in your packet for medications that you should take after discharge. DVT Prophylaxis Lovenox Dosin mg every 12 hours for 30 days. This medication increases bleeding tendency Pain Control: Oxycodone 5 mg 1-2 tabs by mouth every 4-6 hours as needed for pain. Maximum of 10 tabs per day. Hold for sedation Maximum daily dose of Tylenol is 4000 mg from all sources. Antibiotics are required prior to any dental work. FOLLOW UP: Follow up with Dr. Melgar] Within 10-14 days, call for appointment Please call our office with any questions or concerns ([phone])
== END 2018-11-07 13:35 | disposition home health service (06) | DRG 470 ==
LOC: AA 08:48 → SSU 14:28
PROVIDERS: ADMIT Orthopaedic Surgery Adult Reconstructive Orthopaedic Surgery; ATTEND Orthopaedic Surgery Adult Reconstructive Orthopaedic Surgery
PROC: 0SRD0J9 Replacement of Left Knee Joint with Synthetic Substitute, Cemented, Open Approach (ICD-10-PCS; principal; 2018-11-05 11:30)
DX: M17.12 Unilateral primary osteoarthritis, left knee (principal); Z68.42 Body mass index [BMI] 45.0-49.9, adult; I10 Essential (primary) hypertension; J45.909 Unspecified asthma, uncomplicated; K21.9 Gastro-esophageal reflux disease without esophagitis; E03.9 Hypothyroidism, unspecified; F41.9 Anxiety disorder, unspecified; F32.9 Major depressive disorder, single episode, unspecified; G47.33 Obstructive sleep apnea (adult) (pediatric); M79.7 Fibromyalgia; E66.01 Morbid (severe) obesity due to excess calories; M48.062 Spinal stenosis, lumbar region with neurogenic claudication; M25.462 Effusion, left knee; M25.762 Osteophyte, left knee; Z96.651 Presence of right artificial knee joint; Z90.49 Acquired absence of other specified parts of digestive tract; Z88.0 Allergy status to penicillin; Z88.6 Allergy status to analgesic agent; Z91.040 Latex allergy status; Z82.5 Family history of asthma and other chronic lower respiratory diseases; Z80.3 Family history of malignant neoplasm of breast; Z98.49 Cataract extraction status, unspecified eye; Z88.8 Allergy status to other drugs, medicaments and biological substances; Z82.61 Family history of arthritis; Z82.3 Family history of stroke; Z83.3 Family history of diabetes mellitus; Z82.49 Family history of ischemic heart disease and other diseases of the circulatory system; Z72.89 Other problems related to lifestyle; Z79.82 Long term (current) use of aspirin
CPT/HCPCS: 36415; 80048; 85014; 85018; 85049; 88305; 88311; A9270-GY; C1776; G8978-GP-CJ; G8979-GP-CI; J0360; J0690; J1100; J1170; J1650; J2250; J2405; J2704; J2795; J3010